=== PATIENT | female | born 1990 | race Caucasian/White ===

== ENCOUNTER 2020-10-04 07:39 | Observation (INO) | payer OTHER ==
[~2020-10-04] VITALS: Ht 170.2 cm; Wt 108.6 kg
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
[~2020-10-04 07:39] MED LIST: CELEBREX200 MG PO; CELECOXIB200 MG PO; GABAPENTIN300 MG PO; HYDROCHLOROTHIA25 MG PO; HYDROCODON-ACE1 EA11 PO; NORETHINDRONE0.35 MG PO; OXYCODONE HCL5 MG PO; PERCOCET 5-3251 EACH PO; SENNA LAX8.6 MG PO
--- NOTE | 2020-10-04 14:43 | NUR ---
10/04/20 1443 Fabiola Hernandez 1429 PT ARRIVED IN PACU SLEEPY C/O FEELING COLD. WARM BLANKETS AND CUAUHTEMOC PAW PLACED ON PT. 1440 RESTING. REU. NO C/O'S.
--- NOTE | 2020-10-04 15:30 | NUR ---
pt arrived to floor via stretcher from pacu. pt able to stand transfer to bed. pt tolerated well with no dizziness or increased pain. this rn assisted pt to change pts gown due to it being saturated from antonieta dressing.
--- NOTE | 2020-10-04 15:55 | NUR ---
pts gown saturated again from antonieta dressing site. this rn reinforced pts dressing with 2 abd pads and tape. charge nurse ginger aware. pt tolerated and antonieta emptied with 70ml out. pt states pain is tolerable and that she is hungry. this rn provided pt with snacks and gave her the menu to choose something for dinner.
--- NOTE | 2020-10-04 16:35 | NUR ---
THIS RN IN PTS ROOM TO REASSESS PT. PT STATES THAT HER PAIN IS WELL CONTROLLED AT A 4/10. PTS REINFORCED DRESSING DOES HAVE SOME SHADOWING NOTED BUT IT IS NOT SATURATED. OTHER DRESSINGS HAVE SCANT SEROSANGUINOUS DRAINAGE NOTED.
--- NOTE | 2020-10-04 17:01 | NUR ---
PER PT REQUEST THIS RN PROVIDED PT WITH 1 PERCOCET AT THIS TIME IN ORDER "TO STAY ON TOP OF PAIN"
--- NOTE | 2020-10-04 17:30 | NUR ---
THIS RN IN PTS ROOM TO REASSESS PT. THIS RN NOTED THAT PTS FITO DRESSING SITE THAT WAS REINFORCED BY THIS RN IS NOW SATURATED AT THE BOTTOM SIDE. PT STATES THAT HER PAIN IS WELL MANAGED AND PTS OTHER DRESSINGS HAVE SCANT DRAINAGE
--- NOTE | 2020-10-04 18:00 | NUR ---
THIS RN IN PTS ROOM DUE TO PT STATING THAT SHE HAD INCREASED PAIN. THIS RN PROVIDED PT WITH 0.5MG DILUADID AND 4MG OF ZOFRAN. THIS RN ENCOURAGED PT TO AMBULATE. PT DID AMBULATE WITH THIS RN, PT STEADY ON HER FEET
--- NOTE | 2020-10-04 18:30 | NUR ---
THIS RN IN PTS ROOMTO REASSESS PT. PT STATES THAT HER PAIN IS MUCH IMPROVED AFTER SHE WALKED TWICE IN THE BUCIO. PT STATES THAT SHE WAS ABLE TO FEEL THE GAS PAIN IMPROVE. PTS RLQ APPEARS TO HAVE SMALL AMOUNT OF DRAINAGE AT THIS TIME. THIS RN REDRESSED THE SITE TO ENSURE THE DRESSING WAS CLEAN FOR THE COMING SHIFT
--- NOTE | 2020-10-04 19:05 | NUR ---
REPORT RECEIVED FROM DAY SHIFT RN. PT SITTING AT SIDE OF BED ALERT AND ORIENTED. DR. HARPER IN ROOM. IVF INFUSING. CPOX IN PLACE. PT AGREES SHE IS COMFORTABLE AT THIS TIME. WHITE BOARD UPDATED. CALL LIGHT IN REACH.
--- NOTE | 2020-10-04 19:23 | NUR ---
PHONE CALL FROM DR. HARPER. TELEPHONE ORDER FOR CLEAR LIQUID DIET REPEATED BACK TO VERIFY. ORDER UPDATED, PRIMARY RN NOTIFIED.
--- NOTE | 2020-10-04 20:20 | NUR ---
TO NURSES STATION REQUESTING EMESIS BAG. IN TO PT ROOM. PT SITTING ON SIDE OF BED C/O NAUSEA AND 10/10 RUQ PAIN. PRN ADMINISTERED FOR PAIN AND NAUSEA. CPOX IN PLACE. HR 50-60'S. RR 16. SpO2 100% ON RA. SMALL AMOUNT OF SANGUINEOUS DRAINAGE IN FITO DRAIN. UMBILICAL INCISION WITH SMALL AMOUNT RED DRAINAGE. STERI STRIPS IN PLACE. ASSISTED PT TO LYING POSITION. PT AGREES SHE FEELS "MORE COMFORTABLE" AT THIS TIME. CALL LIGHT IN REACH.
--- NOTE | 2020-10-04 21:00 | NUR ---
WALKED WITH PT THROUGHOUT THE HALLS, PT STATED THAT HER PAIN WAS A "STABBING" LIKE PAIN, HAS BEEN "BURPING", BUT DENIED NOT PASSING GAS.
--- NOTE | 2020-10-04 21:00 | NUR ---
CALL LIGHT ANSWERED. PT C/O ABD PAIN THAT "FELT LIKE THE GAS PAIN FROM EARLIER". ABD SOFT AND NON-DISTENDED. ENCOURAGED PT TO AMBULATE TO RELIEVE DISCOMFORT. DIRECTOR OF OPERATIONS FOR THERAPY IN TO AMB WITH PT.
--- NOTE | 2020-10-04 22:10 | NUR ---
EVENING ASSESSMENT COMPLETE. PT REPORTS PAIN IS TOLERABLE AT THIS TIME. DENIES NAUSEA. LAP SITES X 3 WITH STERI STRIPS. UMBILICAL INCISION WITH SMALL AMOUNT SEROSANG DRAINAGE, REINFORCED WITH GAUZE. DRESSING TO FITO SITE WITH MODERATE ANOUNT SEROSANG DRAINAGE. DRESSING CHANGED. ABD SOFT AND NON-DISTENDED. BOWEL TONES ACTIVE. PT DENIES PASSING GAS. 40 ML YELLOW TINGED SEROSANG DRAINAGE EMPTIED FROM FITO. PIV IN RIGHT HAND NOTED TO BE SWOLLEN AND TENDER. IV DC'D WNL. PT DENIES FURTHER NEEDS. CALL LIGHT IN REACH.
--- NOTE | 2020-10-04 22:50 | NUR ---
IV ABX INFUSION DELAYED DUE TO WAITING FOR IV START. IV ABX INFUSING AT THIS TIME. PT REPORTS ABD PAIN /10. PRN FOR PAIN ADMINISTERED. SCHEDULED MEDS ALSO ADMINISTERED PER EMAR. PT DENIES NAUSEA. UP IN HALLWAY AMBULATING INDEPENDENTLY AT THIS TIME.
--- NOTE | 2020-10-04 23:30 | NUR ---
PT UP AMBULATING IN HALLWAYS. REPORTS PAIN IMPROVED. DENIES NAUSEA. IVF INFUSING.
--- NOTE | 2020-10-05 00:21 | NUR ---
PT RESTING IN BED WITH EYES CLOSED, NAD.
--- NOTE | 2020-10-05 02:28 | NUR ---
ADMINISTERED 1 PERCOCET FOR PRIMARY RN SUZANNE. PT REPORTS PAIN AT 8/10 AND JUST GOT BACK TO ROOM AFTER WALKING IN THE HALLS. SHE DENIES FURTHER NEEDS AT THIS TIME. CALL LIGHT IS CLOSE.
--- NOTE | 2020-10-05 03:00 | NUR ---
PT CONTINUES TO REPORT RUQ PAIN 04/04. PRN IV PAIN MED ADMINISTERED PER EMAR. PT REPORTS "A LITTLE" NAUSEA. DENIES PRN FOR NAUSEA. FRESH ICE WATER AND BROTH PROVIDED. VS AND I&O COMPLETE. FITO WITH 120 ML RED/YELLOW DRAINAGE.
--- NOTE | 2020-10-05 03:21 | NUR ---
PT UP AMB IN UNIT INDEPENDENTLY.
--- NOTE | 2020-10-05 04:30 | NUR ---
PT BACK TO BED FROM SITTING IN RECLINER. RED DRAINAGE NOTED ON GOWN. CLEAN GOWN PROVIDED. DRESSING TO FITO INSERTION SITE SATURATED WITH YELLOW TINGED SEROSANG DRAINAGE. DRESSING CHANGED. BARRIER SPRAY APPLIED TO SKIN DUE TO REDNESS AND IRRITATION. PT REPORTS PAIN IS TOLERABLE AT THIS TIME. DENIES NAUSEA. CPOX IN PLACE. IVF INFUSING PER ORDER.
--- NOTE | 2020-10-05 06:23 | NUR ---
SCHEDULED MEDS ADMINISTERED. IV ABX INFUSING. FITO WITH 60 ML YELLOW TINGED SEROSANG DRAINAGE. FITO DRESSING CDI AT THIS TIME. PT DENIES NAUSEA. NO FURTHER NEEDS.
--- NOTE | 2020-10-05 06:42 | NUR ---
DR. HARPER CALLED AND UPDATED ON PT NIGHT. NO NEW ORDERS RECEIVED AT THIS TIME.
--- NOTE | 2020-10-05 07:52 | NUR ---
THIS RN RECEIVED REPORT FROM SUZANNE MICHELLE. PT APPEARS TO BE RESTING AT THIS TIME. THIS RN WILL CHECK BACK ON PT SHORTLY. RESPIRATIONS NOTED
--- NOTE | 2020-10-05 08:14 | NUR ---
PATIENT UP TO BR, AND THE SIDE OF BED FOR BREAKFAST. IN ROOM. FACE AND HANDS WASHED. PARTIAL LINEN CHANGE. PATIENT WILL AMBULATE AFTER SHE EATS. CALL LIGHT IN REACH
--- NOTE | 2020-10-05 08:20 | NUR ---
THIS RN IN PTS ROOM THIS AM. PT STATES THAT SHE IS FEELING MUCH BETTER THIS AM. THIS RN TO EMPTY PTS DRAIN TO ASSESS FLUIDS, DRAIN APPERAS TO BE DARK IN COLOR WITH A LSIGHT YELLOW TINT TO IT. PT STATES THAT HER DRESSING IS HOLDIN GUP AND IT APPEARST TO HAVE NO SHADOWING NOTED. THIS RN PROVIDED PT WITH 1 PERCOCET THIS AM TO KEEP PT ON A GOOD SCHEDULE
--- NOTE | 2020-10-05 09:25 | NUR ---
PT UP WALKING THE HALLS. STATES THAT PT WILL GO FOR AN MRCP AFTER AWHILE
--- NOTE | 2020-10-05 10:28 | NUR ---
PATIENT AWAKE IN BED, HUSABND NAPPING ON COUCH. VITALS AND I&OS CAHRTED. PATIENT NOW UP TO BATHROOM AND AMBULATING HALLS. FITO DRAINED.
--- NOTE | 2020-10-05 13:14 | NUR ---
PT ALERT, ORIENTED AND SUPPORTED BY HER WHO APPEARS TO BE ASLEEP ON THE COUCH. PT STATED SHE IS NPO DUE TO A LEAK IN HER INCISION. SHE SAYS THEY MAY HAVE TO SURGERY TO REPAIR LEAK. GAVE BLESSING WILL FOLLOW
--- NOTE | 2020-10-05 13:51 | NUR ---
PATIENT AWAKE AT SIDE OF BED. IN ROOM. VITALS AND I&OS CHARTED. FITO DRAINED. HEATING PAD PROVIDED FOR COMFORT. CALL LIGHT IN REACH
--- NOTE | 2020-10-05 13:52 | NUR ---
PT OUT AAMBUALTING HALLS. WENT UP TO CHECK ON PT PAIN CONTROL BECAUSE IT WAS REPORTED BY IMAGING THE STUDY WAS CUT SHORT D/T INCREASE IN PAIN. PT AMBULATING HALLS CRYING D/T PAIN. TOLD PT TO GO BACT TO ROOM FOR PAIN MEDICATIONS. TORIDOL AND 1 TAB PERCOCET ADMISNTERED. HEATING PACK PROVIDED PT NOW RESTING IN BED. TYLENOL ADRIEN D/T PERCOCET. ABX STARTED.
--- NOTE | 2020-10-05 14:00 | NUR ---
Pt states she lives in [place] with her SO in a split level home. She has steps, but does not have any issues. She is active and healthy and plans on dc to home. She has multiple family members who will assist her as well as her SO. Will dc when cleared medically.
--- NOTE | 2020-10-05 14:48 | NUR ---
PATIENT AMBULATING HALLS WITH
--- NOTE | 2020-10-05 15:00 | NUR ---
THIS RN IN PTS ROOM TO CHECK ON PT. PT STATES THAT HER PAIN IS MUCH IMPROVED AT THIS TIME, PT STATES WALKING HAS REALLY HELPED AND THAT THE MRI ROOSEVELT'T A GOOD EXPERIECNE
--- NOTE | 2020-10-05 17:13 | NUR ---
PATIENT UP IN CHAIR, VITALS AND I&OS CHARTED. CALL LIGHT IN REACH
--- NOTE | 2020-10-05 18:20 | NUR ---
THIS RN IN PTS ROOM TO CHECK ON HER. PT STATES THAT HER PAIN IS TOLERABLE AT 4/10 AND DOES NOT NEED ANYTHING FURTHER TO TREAT IT. PT STATES UNDERSTANDIN GTHAT SHE WILL BE NPO AT MIDNIGHT
--- NOTE | 2020-10-05 19:07 | NUR ---
CHARGE NURSE REPORT RECEIVED. PT UP AMBULATING HALLS INDEPENDENTLY.
--- NOTE | 2020-10-05 19:23 | NUR ---
IN ROOM FOR REPORT, PT IS AWAKE IN THE RECLINER. SHE DENIES NEEDS AT THIS TIMEL CALL LIGHT IS CLOSE.
--- NOTE | 2020-10-05 20:28 | NUR ---
IN ROOM TO ASSESS PT AND ADMINISTER MEDICATIONS. DURING ASSESSMENT WE FOUND HER IV WAS INFILTRATED. DC'D IV IN L FOREARM, PT TOLERATED WELL, CATH TIP INTACT AND GAUZE AND COBAN IN PLACE. ADVISED PT WILL RETURN TO START A NEW IV A LITTLE LATER SHE SAYS SHE IS A HARD START. REINFORCED GAUZE AROUND PT'S FITO SITE WITH DRAIN SPONGE, ABD AND FOAM TAPE. EMPTIED 30MLS FROM FITO OF BROWN/YELLOW FLUID. PT WALKED IN THE HALLS MULTIPLE TIMES ALREADY TONIGHT AND STATES HER GAS PAINS ARE GETTING BETTER. WILL RETURN TO START NEW IV AND ADMINISTER THE REST OF THE HER MEDICATIONS. ADMINISTERED PERCOCET FOR 4/10 PAIN TO STAY ON TOP OF IT. SHE DENIES FURTHER NEEDS AT THIS TIME. CALL LIGHT IS CLOSE.
--- NOTE | 2020-10-05 21:46 | NUR ---
20G IV STARTED IN LEFT AC. PT TOLERATED WELL. IV FLUIDS INFUSING PER ORDER.
--- NOTE | 2020-10-05 21:53 | NUR ---
VITALS AND I/O'S DONE. CT PRIMARY RN AWARE.
--- NOTE | 2020-10-05 22:43 | NUR ---
NEW IV WAS STARTED BY CLARE MICHELLE. FINISHED ADMINISTERING PT'S SCHEDULED MEDICATIONS. EMPTIED ANOTHER 20MLS FROM PT'S FITO DRAIN OF BROWN/YELLOW FLUID. SHE DENIES FURTHER NEEDS AND CALL LIGHT IS CLOSE.
--- NOTE | 2020-10-06 00:50 | NUR ---
PT IS RESTING WITH EYES CLOSED, RR IS EVEN AND NONLABORED. CALL LIGHT IS CLOSE AND IV IS INFUSING FINE.
--- NOTE | 2020-10-06 02:29 | NUR ---
PT IS WALKING LAPS IN THE BUCIO.
--- NOTE | 2020-10-06 03:20 | NUR ---
IN ROOM TO ADMINISTER TORADOL FOR 4/10 PAIN. EMPTIED FITO DRAIN OF 50MLS BROWN/YELLOW FLUID. PT CONTINUES TO REPORT FEELING BETTER. DRESSING AROUND FITO DRAIN HAS SOME SEROSANGUINOUS/YELLOW/BROWN DRAINAGED NOTED. WILL LEAVE IN PLACE FOR DR HARPER TO SEE THIS AM. PT DENIES FURTHER NEEDS. CALL LIGHT IS CLOSE.
--- NOTE | 2020-10-06 05:53 | NUR ---
IN ROOM TO ADMINISTER MORNING MEDS. PT REPORTS PAIN 3/10 AT THIS TIME. EMPTIED ANOTHER 50 FROM THE FITO DRAIN. VS TAKEN AND PT DENIES FURTHER NEEDS. CALL LIGHT IS CLOSE.
--- NOTE | 2020-10-06 06:22 | NUR ---
PT STATES SHE SLEPT BETTER LAST NIGHT. HER PAIN IS WELL CONTROLLED WITH PERCOCET AND TORADOL. FITO DRAIN HAD 150 MLS OUT THROUGH THE NIGHT. FITO DRAIN IS LEAKY, ABD PAD WAS CHANGED ONCE. DRAINAGE REMAINS A BROWN/YELLOW COLOR. SHE WALKED A LOT AND REPORTS FEELING MUCH BETTER. SHE HAS NOT PASSED GAS YET BUT BOWEL TONES ARE ACTIVE.
--- NOTE | 2020-10-06 07:20 | NUR ---
SHIFT REPORT FROM PANCHITO MICHELLE INCLUDED: pt is fully independent and ambulates through the halls at will. pt being seen post lap choley. pts FITO drain is putting out dark brown fluid in somewhat heavy amounts, and the FITO drain incision site is leaking onto the dressing around it. Lap sites x3 appear dry and intact, some dried reddish brown drainage. pt report 3/10 tolerable pain at this time. table and call light within reach.
--- NOTE | 2020-10-06 08:20 | NUR ---
PATIENT UP TO AMBULATE IN HALLWAY.
--- NOTE | 2020-10-06 09:00 | NUR ---
ASSESSMENT AND MED PASS ASSESSMENT COMPLETED, VSS. PT ABLE TO STOP FLUIDS AND HAVE A SHOWER AT THIS TIME. PT GIVEN SLING FOR HER FITO DRAIN. PT ABLE TO TAKE ALL MEDS WITHOUT DIFFICULTY. CALL AMY WALTERS.
[2020-10-06] MEDS ORDERED: ACETAMINOPHEN500 MG PO (09:03)
--- NOTE | 2020-10-06 11:00 | NUR ---
PATIENT READY FOR DC PATIENT VERBALIZED UNDERSTANDING OF FITO DRAIN CARE AND DRESSING CHANGES AND WAS ABLE TO DEMONSTRATE PROPER DRESSING CHANGE IN HOSPITAL. PT VERBALIZED UNDERSTANDING OF DC INSTRUCTIONS, MEDS AND FOLLOW UP CARE PLANS. PT TAKEN OUT BY TI IN WHEELCHAIR WITH AND BELONGINGS.
--- NOTE | 2020-10-06 12:39 | PATH ---
[facility] [address], [place] [address] Signed SPECIMEN(S): A GALLBLADDER AND STONES SPECIMEN SOURCE: A. GALLBLADDER AND STONES CLINICAL HISTORY: Chronic cholecystitis with calculus. FINAL PATHOLOGIC DIAGNOSIS: Gallbladder, cholecystectomy: - Acute on chronic cholecystitis with cholesterolosis. - Cholelithiasis. - One lymph node with no evidence of malignancy. NAL:cml:C2NR MICROSCOPIC EXAMINATION: Histologic sections of all submitted blocks are examined by light microscopy. These findings, together with the gross examination, support the pathologic diagnosis. GROSS DESCRIPTION: The specimen, labeled "BB, A," and designated on the requisition "gallbladder and stones," is received in formalin and consists of Specimen: Previously incised gallbladder. Dimensions: Upon reconstruction, 10.3 x 4.7 x 3.2 cm. Serosa: Tam to purple, smooth, glistening. Cystic Duct: 0.1 cm in diameter, patent, and the margin is inked blue. Calculi: Within specimen container are multiple, friable, hard, yellow to black, multifaceted calculi from less than 0.1-2.1 cm in greatest dimension. Mucosa: Dark red, velvety, glistening with focal areas of tam plaque-like material. Wall thickness: 0.2-0.5 cm. Lymph node: No pericystic lymph nodes are grossly identified. Additional: None. Qc Scientist sections are submitted in cassette (A1). AI(under the direct supervision of a pathologist) The Gross Description was prepared using a voice recognition system. The report was reviewed for accuracy; however, sound-alike word errors, addition and/or deletions may occur. If there is any question about this report, please contact Client Services. PATIENT NAME: CHRISTY DUNAWAY PATHOLOGY DATE OF : [birth year] REPORT #: [id number] PHYSICIAN: MONCHO VEE PCP: VALENCIA LUEVANO PA-C REPORT IS CONFIDENTIAL AND NOT TO BE RELEASED WITHOUT AUTHORIZATION [facility] [address] [address] Signed PERFORMING LABORATORY: The technical component was performed by [place] [address] (Flow Specialist: Meghna Mckeon MD; CLIA# [id number]). Professional interpretation was performed by [facility], [address] [address] (CLIA# [id number]). Diagnostician: Vielka Victor MD Pathologist Electronically Signed 10/06/2020 Copies: ~ PATIENT NAME: CHRISTY DUNAWAY PATHOLOGY DATE OF : [birth year] REPORT #: [id number] PHYSICIAN: MONCHO VEE PCP: VALENCIA LUEVANO PA-C REPORT IS CONFIDENTIAL AND NOT TO BE RELEASED WITHOUT AUTHORIZATION
--- NOTE | 2020-10-06 17:33 | OR ---
[facility] [address], [place] [address] Signed DATE OF OPERATION: 10/04/2020 SURGEON: Edvin Harper MD PREOPERATIVE DIAGNOSES: 1. Morbid obesity. 2. Chronic cholecystitis (calculous). POSTOPERATIVE DIAGNOSES: 1. Severe and chronic calculous cholecystitis with marked fibrosis and white bile. 2. Morbid obesity. PROCEDURE: 1. Laparoscopic cholecystectomy with attempted but failed cholangiogram, prolonged, complicated, difficult. ANESTHESIA: General endotracheal; Jose Francisco Olivier CRNA and local 10 mL of 0.25% Marcaine with epinephrine. INDICATION: This is a 30-year-old morbidly obese white woman with a BMI of 37.4. The patient of [facility]. The patient has had symptoms highly suggestive of biliary disease including epigastric and right subcostal pain, particularly following solid or fatty food. The patient has had progressive symptoms overtime. Gallbladder ultrasound was performed, which showed at least three gallstones. This was performed September 22, 2020. The gallbladder was considered thin without pericholecystic fluid, but multiple shadowing large gallstones were noted. Common duct was small. There was no sign of obstruction noted. The patient was admitted at this time to undergo cholecystectomy preferably by laparoscopic approach. The risks of bleeding, infection, bile duct injury, need for open procedure and other unforeseen complications was reviewed with her in detail. She understands and wished to proceed. FINDINGS: Far from a thin gallbladder wall the gallbladder wall was markedly thickened, leathery and impressively inflamed and densely adherent to surrounding soft tissue. Drainage showed there to be white (clear) bile indicative of chronic obstruction of the outlet of the gallbladder. The cystic duct was well identified, but quite diminutive and attempts to cannulate for cholangiogram were quite unsuccessful and the cystic duct was clipped without benefit of cholangiogram unfortunately. There was some bleeding in the Electronically Signed By: EDVIN HARPER MD 10/06/20 9105 PATIENT NAME: CHRISTY DUNAWAY OPERATIVE REPORT DATE OF : [birth year] REPORT #: [id number] PHYSICIAN: EDVIN HARPER MD PCP: VALENCIA LUEVANO PA-C REPORT IS CONFIDENTIAL AND NOT TO BE RELEASED WITHOUT AUTHORIZATION [facility] [address], [place] [address] Signed posterior wall of the hepatic bed, which was secured with hemoclips but not thought to be a deep within the parenchyma of the liver by any means. The liver itself had fatty infiltration, but not excessively so and there was certainly no evidence of inflammation. Omental adhesions from prior pelvic surgery were noted. The operation was prolonged complicated and difficult and related to her adhesions. The intensity of her inflammation and so forth was accomplished safely. A drain was placed. DESCRIPTION OF PROCEDURE: The patient was brought to the operating room, given a general endotracheal anesthetic. Preoperative antibiotic Ancef was given. Sequential compression device stockings used and heparin subcutaneously administered. The abdomen was prepared with chlorhexidine solution and draped sterilely. Low midline incision was noted from the past. Nevertheless, an infraumbilical incision was made and using an open Yvonne cannula technique, the abdomen was entered. Omental adhesions were noted to the area, but with blunt dissection, a window was created cephalad allowing for placement of the Yvonne cannula. Pneumoperitoneum was achieved to a level of 14 mmHg with carbon dioxide gas. Intraabdominal inspection showed no sign of ascites or carcinomatosis. The apex of the gallbladder was noted and fused with the liver and quite markedly inflamed and thickened. The liver itself had fatty infiltration, but not excessively so and there was no sign of cirrhosis. Three additional trocars were placed in usual configuration the subxiphoid, right midclavicular, and right anterior axillary line. The gallbladder could not be grasped. It was so densely and inflamed and thickened. The omental adhesions were taken down with a variety of maneuvers, mostly with blunt dissection and small amount of cautery. Adhesion of the gallbladder to the duodenum was noted. This was quite carefully taken down with blunt dissection ultimately allowing for full visualization of the gallbladder. The gallbladder was so dense. It could not be grasped on that basis a laparoscopic needle trocar device was used to decompress the gallbladder. This decompressed white bile (clear bile) indicative of complete outlet obstruction of the gallbladder itself. The puncture site was grasped and the gallbladder elevated cephalad. The infundibulum was reasonably well visualized and using blunt electrocautery dissection, the triangle of Calot was dissected free. The pericholecystic lymph node was noted. Ultimately, the cystic duct was well identified as well as the cystic arterial branch, which was clipped. The cystic duct was relatively small, but quite obviously the cystic duct no mistaking that structure at all. A clip was applied across gallbladder cystic duct junction and transverse choledochotomy made in the cystic duct. Due to the thickening of the cystic duct itself, only a minute hole was able to be made in the cystic duct and it was milked in a retrograde fashion indicating some bile. With various manipulations, a cholangiocatheter was attempted to pass into the cystic duct, but given the small size of the puncture it could not fit. Additional choledochotomy was made with scissors to Electronically Signed By: EDVIN HARPER MD 10/06/20 3520 PATIENT NAME: CHRISTY DUNAWAY OPERATIVE REPORT DATE OF : [birth year] REPORT #: [id number] PHYSICIAN: EDVIN HARPER MD PCP: VALENCIA LUEVANO PA-C REPORT IS CONFIDENTIAL AND NOT TO BE RELEASED WITHOUT AUTHORIZATION [facility] [address] [place], [place] [address] Signed accommodate the larger size, but at this point, it was nearly detached. Various maneuvers were undertaken to secure the duct more fully to allow for cholangiogram, but it simply was not possible to do so. Ultimately, the cystic duct was freed from the surrounding structures ascertaining its course as best could be. It appeared that it may be a short cystic duct and further dissection medially and cephalad was deemed inadvisable. Clips were applied to the cystic duct flushed with what may have been the common duct, taking care to avoid encumbrance to the common duct itself. It was uncertain if the common duct was actually visualized or perhaps an aberrant right hepatic duct as a possibility also would be considered. However, what was clipped was clearly the cystic duct even though that did not have a lengthy amount to it. The gallbladder was then dissected free in a retrograde fashion. Impressive fibrosis was noted between the liver and the gallbladder and a typical plane could not reasonably be developed entirely. Entry into the medial aspect resulted in somewhat vigorous bleeding, which was with the gallbladder itself re-grouping allowing for good visualization and ultimately application of hemoclips to the site. The gallbladder was then dissected free in a retrograde fashion. Intensity of the inflammation increased in the more proximal gallbladder and the posterior wall was so intensely adherent that a good plane could not be developed and all posterior wall superiorly was left in place. Four large boulder type gallstones were identified. An endobag was used to extract the stones as well as the gallbladder itself. Irrigation was undertaken in subhepatic space some clotted blood and so forth free. There was no bile leak at all. Irrigation was undertaken and multiple photographs taken as well. As the raw posterior wall of hepatic bed from cholecystectomy was rather roughed up Fibrin glue (Tisseel) was applied with CO2 assistance, assuring good hemostasis. Through right-sided trocar site, a 7 mm flat Jorge drain was placed in the subhepatic space and secured to the skin with a nylon suture and attached to bulb suction. There was no sign of bile leak, ongoing bleeding or other problems. Attention was turned towards closure. The infraumbilical fascial incision was reapproximated with interrupted 0 Vicryl suture as well as a running 0 PDS suture. 10 mL of 0.25% Marcaine was injected locally in each trocar site. The skin was closed with interrupted 3-0 Vicryl. Steri-Strips were applied. The patient was ultimately extubated and transferred to the recovery room in good condition having suffered no complication. Sponge, needle, and instrument counts reported as correct x3. Not mentioned previously was noticed at the right lobe of the liver had no evidence of ischemic change or other adverse findings following hemostatic control of the liver bed with hemoclip. Electronically Signed By: EDVIN HARPER MD 10/06/20 1733 PATIENT NAME: CHRISTY DUNAWAY OPERATIVE REPORT DATE OF : [birth year] REPORT #: [id number] PHYSICIAN: EDVIN HARPER MD PCP: VALENCIA LUEVANO PA-C REPORT IS CONFIDENTIAL AND NOT TO BE RELEASED WITHOUT AUTHORIZATION [address] [address] Signed MD BRETT Rojas/MODL /[id number] cc: PA. Mil Copies: ~ Electronically Signed By: EDVIN HARPER MD 10/06/20 1733 PATIENT NAME: EMELYNCHRISTY LEODAN OPERATIVE REPORT DATE OF : [birth year] REPORT #: [id number] PHYSICIAN: EDVIN HARPER MD PCP: VALENCIA LUEVANO PA-C REPORT IS CONFIDENTIAL AND NOT TO BE RELEASED WITHOUT AUTHORIZATION
== END 2020-10-06 11:20 | disposition home or self-care (01) ==
LOC: DS 07:39 → MS 14:59
PROVIDERS: ADMIT Surgery; ATTEND Surgery
PROC: 0FT44ZZ Resection of Gallbladder, Percutaneous Endoscopic Approach (ICD-10-PCS; principal; 2020-10-04 09:40)
DX: K80.10 Calculus of gallbladder with chronic cholecystitis without obstruction (principal); I10 Essential (primary) hypertension; E66.01 Morbid (severe) obesity due to excess calories; Z98.890 Other specified postprocedural states; Z68.37 Body mass index [BMI] 37.0-37.9, adult
CPT/HCPCS: 00790; 36415; 74181; 80053; 82247; 82465; 83615; 84100; 84478; 84550; 85025; J0131; J0330; J0690; J1100; J1170; J1644; J1885; J2001; J2250; J2270; J2405; J2704; J3010; J7121

== ENCOUNTER 2021-09-21 06:10 | Day surgery (SDC) | payer OTHER ==
[~2021-09-21] VITALS: Ht 172.7 cm; Wt 119.0 kg
[~2021-09-21 06:10] MED LIST changes: +ACETAMINOPHEN500 MG PO
--- NOTE | 2021-09-21 09:16 | NUR ---
09/21/21 0916 Laura uLna 0910 PATIENT ARRIVES TO PACU UNRESPONSIVE TO PAIN. ORAL AIRWAY IN PLACE. REQUIRES RN TO HOLD CHIN LIFT. RESP EVEN AND UNLABORED, MASK AT 10 LITERS. 0914 HOB ELEVATED. PATIENT CONTINUES TO BE UNRESPONSIVE TO PAIN, ORAL AIRWAY IN PLACE, NO LONGER REQUIRES CHIN LIFT. RESP EVEN AND UNLABORED, MASK CONTINUED AT 10 LITERS. 0915 PATIENT SITS UP IN BED. FOLLOWS COMMANDS TO OPEN MOUTH, ORAL AIRWAY REMOVED. RESP EVEN AND UNLABORED, MASK DECREASED TO 6 LITERS. PATIENT AWAKE OFF/ON, BUT VERY DROWSY.
--- NOTE | 2021-09-21 10:38 | NUR ---
0913 PT BACK FROM PACU AWAKE AND ALERT DENIES PAIN AND NAUSEA, PT EATING CRACKERS AND DRINKING WATER TOLERATES WELL. WARM BLANKETS GIVE, CALL LIGHT WITHIN REACH. HER MOM IS AT BEDSIDE. EBONI PAD WITH SMALL AMOUT OF RED BLOOD.
--- NOTE | 2021-09-21 10:40 | NUR ---
1005 PT UP TO BATHROOM WAS ABLE TO AMBULATE WITHOUT ASSIST. SHE WAS NOT ABLE TO VOID. CHANGED EBONI PAD AND PUT ON HER OWN UNDERWEAR. PT WALKED BACK TO ROOM WARM BLANKETS GIVEN CALL LIGHT WITH IN REACH.
--- NOTE | 2021-09-21 10:52 | NUR ---
PT ALERT, ORIENTED AND SUPPORTED BY HER MOTHER. PT PLEASANT,SEEMS INFORMED, ALL QUESTIONS ASKED ANSWERED. PT REQUESTED PRAYER, MOTHER WILL REMAIN UNTIL DC. WILL FOLLOW NEEDED
--- NOTE | 2021-09-21 11:13 | NUR ---
1045 PT ABLE TO VOID 200ML OF CLEAR YELLOW URINE DENIES PAIN OR NAUSEA. DISCHARGE INSTRUCTIONS GIVEN TO PT SHE VOICED UNDERSTANDING, PT ASKING ABOUT WHEN SHE CAN RETURN TO WORK CALLED THEY WILL BE CALLING HER BACK.
--- NOTE | 2021-09-21 18:36 | OR ---
[address] [address] Signed DATE OF OPERATION: 09/21/2021 SURGEON: Nicolás Elizondo MD The patient of Dr. Elizondo. PREOPERATIVE DIAGNOSIS: Missed at approximately nine weeks. POSTOPERATIVE DIAGNOSIS: Missed at approximately nine weeks. PROCEDURE: Suction D and C. ANESTHESIA: General. ESTIMATED BLOOD LOSS: 200 mL. SPECIMEN: Products of conception. DRAINS: None. PACKING: None. FINDINGS: Vagina, no blood. Cervix; soft, thick, closed. Uterus; approximately eight week size. No adnexal masses palpable. COMPLICATIONS: None. DESCRIPTION OF PROCEDURE: The patient was brought to the operating room, placed supine position. After adequate general anesthesia was obtained, she was placed in dorsal lithotomy position, prepped Electronically Signed By: NICOLÁS ELIZONDO MD 09/21/21 1836 PATIENT NAME: CHRISTY DUNAWAY OPERATIVE REPORT DATE OF : [birth year] REPORT #: [id number] PHYSICIAN: NICOLÁS ELIZONDO MD PCP: VALENCIA LUEVANO PA-C REPORT IS CONFIDENTIAL AND NOT TO BE RELEASED WITHOUT AUTHORIZATION [facility] [address] [place] [id number] Signed and draped in usual sterile fashion. A weighted speculum was placed in the vagina and a Osmel placed and the upper vagina and the anterior lip of the cervix grasped with an Allis clamp. [place] was removed. The cervix was serially dilated through a #10 dilator. A #10 curved suction tip curette was then carefully introduced through the cervix into the uterine cavity. After testing the suction, the curette was then moved in a 360 degree fashion as was slowly removed removing moderate amount of tissue and blood. This was repeated several times until the normal empty field of the uterus was noted. No additional tissue was being removed from the uterus. All instruments were removed from the vagina and the uterus repalpated and noted to be smaller and more firm. The cervix was reexamined, noted to have no further bleeding, so the procedure was terminated. The patient tolerated the procedure well, went to recovery room in good condition. The sponge and instrument count were correct at the end of the procedure. MD JULI Garcia/ALEX /[id number] cc: Copies: ~ Electronically Signed By: NICOLÁS ELIZONDO MD 09/21/21 1836 PATIENT NAME: CHRISTY DUNAWAY OPERATIVE REPORT DATE OF : [birth year] REPORT #: [id number] PHYSICIAN: NICOLÁS ELIZONDO MD PCP: VALENCIA LUEVANO PA-C REPORT IS CONFIDENTIAL AND NOT TO BE RELEASED WITHOUT AUTHORIZATION
--- NOTE | 2021-09-22 13:26 | PATH ---
[facility] [address] [place], [place] [address] Signed SPECIMEN(S): A PRODUCTS OF CONCEPTION SPECIMEN SOURCE: A. PRODUCTS OF CONCEPTION CLINICAL HISTORY: Suction DC. Missed AB, demise. FINAL PATHOLOGIC DIAGNOSIS: Products of conception, dilation and curettage: - Immature chorionic villi admixed with immature membranes, consistent with products of conception. - Fragments of decidua. NAL:cml:C2NR MICROSCOPIC EXAMINATION: Histologic sections of all submitted blocks are examined by light microscopy. These findings, together with the gross examination, support the pathologic diagnosis. GROSS DESCRIPTION: The specimen, labeled "BB," and designated on the requisition "products of conception," is received in formalin and consists of membranous and possible stiles-brown, spongy tissue fragments with mucus and clot material, measuring 11.7 x 10.8 x 1.4 cm in aggregate. /embryonic tissues are not grossly identified. Athletic Equipment Manager sections are submitted in cassettes (A1-A3). AT (under the direct supervision of a pathologist) The Gross Description was prepared using a voice recognition system. The report was reviewed for accuracy; however, sound-alike word errors, addition and/or deletions may occur. If there is any question about this report, please contact Client Services. PERFORMING LABORATORY: The technical component was performed by [employer], [address] [place] [id number] (Loss Control Representative: Meghna Mckeon MD; CLIA# [id number]). [facility] [address] [address] (CLIA# [id number]). Diagnostician: Vielka Victor MD PATIENT NAME: CHRISTY DUNAWAY PATHOLOGY DATE OF : [birth year] REPORT #: [id number] PHYSICIAN: [facility] PCP: VALENCIA LUEVANO PA-C REPORT IS CONFIDENTIAL AND NOT TO BE RELEASED WITHOUT AUTHORIZATION [address] [address] Signed Pathologist Electronically Signed 09/22/2021 Copies: ~ PATIENT NAME: CHRISTY DUNAWAY PATHOLOGY DATE OF : [birth year] REPORT #: [id number] PHYSICIAN: [facility] PCP: VALENCIA LUEVANO PA-C REPORT IS CONFIDENTIAL AND NOT TO BE RELEASED WITHOUT AUTHORIZATION
== END 2021-09-21 11:05 | disposition home or self-care (01) ==
LOC: DS 06:10
PROVIDERS: ATTEND General Practice
PROC: 10D17ZZ Extraction of Products of Conception, Retained, Via Natural or Artificial Opening (ICD-10-PCS; principal; 2021-09-21 08:00)
DX: O02.1 Missed abortion (principal); Z20.822 Contact with and (suspected) exposure to COVID-19
CPT/HCPCS: 00952; J1100; J1885; J2250; J2405; J2590; J2704; J2765; J3010; J7121; U0003